=== PATIENT | male | born 1980 | race African-American/Black ===

== ENCOUNTER 2019-11-05 03:55 | Emergency (ER) | payer OTHER ==
[2019-11-05 04:06] VITALS: BP 128/87
[2019-11-05] MEDS ORDERED: ACETAMINOPHEN 325 MG TABLET PO ONE (04:08)
--- NOTE | 2019-11-05 06:20 | RADIOLOGY REPORT (SQ) ---
Right hand radiographs: 11/05/2019 5:19 AM SAFE EXPERT TECHNIQUE: AP, lateral, oblique images of the right hand were obtained. HISTORY: 39-year-old patient with history of right hand pain, trauma. COMPARISON: None available FINDINGS: The carpal arcs appear to be intact. The soft tissues are grossly unremarkable. There are no findings to suggest an acute fracture or subluxation within the right hand. No abnormal soft tissue calcifications, significant osteophyte formation, periarticular osteopenia, or bony erosions are seen. IMPRESSION: There are no findings to suggest an acute fracture or subluxation within the right hand.
[2019-11-05] MEDS ORDERED: DIPH/PERTUSS(ACELL)/TETANUS VAC/PF 0.5 ML SYR (>=10YO) IM ONE (08:01)
[2019-11-05] MEDS ORDERED: LIDOCAINE 1% INJ-PF (10 MG/ML) 30 ML SDV INJ ONE (08:33)
[2019-11-05] MEDS ORDERED: AMOXICILLIN TR/POT CLAVULANATE 500-125 MG TAB PO ONE (08:34)
--- NOTE | 2019-11-05 08:43 | ER Document Report ---
HPI - HPI Patient complains to provider of: finger laceration Time Seen by Provider: 11/05/19 07:55 Onset: Just prior to arrival Onset/Duration: Sudden Quality of pain: Throbbing Pain Level: 2 Context: 39-year-old male with history of high blood pressure presents to the emergency department with laceration to his right middle finger. 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 Is unsure of his last tetanus. Reports he is right-handed. Patient able to flex and extend finger without problems. No other complaints such as fever nausea vomiting diarrhea. Associated Symptoms: None Exacerbated by: Denies Relieved by: Denies Similar symptoms previously: No Recently seen / treated by doctor: No Past Medical History - General Information source: Patient - Social History Smoking Status: Never Smoker Frequency of alcohol use: None Drug Abuse: None Occupation: truck farmer Family History: Reviewed & Not Pertinent Patient has suicidal ideation: No Patient has homicidal ideation: No - Past Medical History Cardiac Medical History: Reports: Hx Hypertension Surgical Hx: Negative Vertical Provider Document - CONSTITUTIONAL Agree With Documented VS: Yes Exam Limitations: No Limitations General Appearance: WD/WN, No Apparent Distress - INFECTION CONTROL TRAVEL OUTSIDE OF THE [place] IN LAST 30 DAYS: No - HEENT HEENT: Atraumatic, Normocephalic - NECK Neck: Supple - RESPIRATORY Respiratory: No Respiratory Distress - CARDIOVASCULAR Cardiovascular: Regular Rate - MUSCULOSKELETAL/EXTREMETIES Musculoskeletal/Extremeties: MAEW, FROM, Tender - NEURO Level of Consciousness: Awake, Alert, Appropriate - DERM Integumentary: Warm, Dry, Laceration - 1.5 cm front to right middle finger wrapped around to the back of his finger down his nailbed, cap refill less than 3 seconds, no active bleeding Course - Re-evaluation Re-evalutation: 11/05/19 09:29 39-year-old male presents with open tuft fracture to his right middle finger. Dr. Dexter consulted. He advises placing patient on Augmentin follow-up in the office today. Finger cleaned really well. 3 sutures placed, splint placed for patient comfort. He was instructed on [place] Augmentin and the importance of follow-up with Dr. Dexter today. He was instructed on signs and symptoms of infection. He verbalized understanding to all instructions. 11/05/19 17:57 Patient contacted for follow-up. Reports he was unable to see Dr. Dexter today but he supposed to have an appointment with him by Monday. They are supposed to call him. Also reports his finger does not hurt that much reports feeling has returned to the finger. He was instructed to monitor the finger for any signs of infection take antibiotics as prescribed return for concerns. He verbalized understanding to all instructions. - Vital Signs Vital signs: Temp Pulse Resp BP Pulse Ox 97.7 F 80 18 128/87 H 97 11/05/19 04:05 11/05/19 04:05 11/05/19 04:05 11/05/19 04:05 11/05/19 04:05 - Diagnostic Test Radiology reviewed: Image reviewed, Reports reviewed - Consults Dr. Dexter Time consulted: 09:00 Reason for consultation: 11/05/19 09:29 Open tuft fracture Consulted provider: follow-up in office Procedures - Laceration/Wound Repair Right 3rd digit Wound length (cm): 1 Wound's Depth, Shape: Superficial Laceration pre-procedure: Shur-Clens applied Anesthetic type: 1% Lidocaine Volume Anesthetic (mLs): 3 Wound explored: Clean Wound Repaired With: Sutures Suture Size/Type: 4:0, Prolene Layer Closure?: No Post-procedure wound care: Splint applied Post-procedure NV exam normal: Yes Complications: No Notes: 11/05/19 09:18 Finger first soaked in normal saline and Shur-Clens. Finger cleaned well finger webspace digital block completed, 3 mils lidocaine injected, 3 sutures placed, patient tolerated procedure well, Hands front picture: 1 - laceration dorsal right middle finger that wraps around to the back of right middle finger down the nail. finger cleaned well, tuft fx noted, closed with 3 sutures, splint applied Discharge - Discharge Clinical Impression: Injury of right middle finger, open fracture right middle finger, tuft fracture Condition: Stable Disposition: HOME, SELF-CARE Instructions: Augmentin ([facility]), Laceration Care ([facility]), Open Finger Tuft Fracture ([facility]), Oral Narcotic Medication ([facility]), Prophylactic Antibiotic ([facility]), Temporary Splint ([facility]), Tetanus Immunization Given ([facility]) Additional Instructions: *You have been treated for a open tuft fracture to the right middle finger *Take medication as prescribed *Monitor the finger for signs of infection such as increased pain, warmth, redness, swelling, and discharge *Keep your finger clean. Wear splint to protect your finger *Follow up with Dr. Dexter today *Return to ED for any signs of infection, worsening condition, concerns Prescriptions: Amoxicillin/Potassium Clav [Augmentin 875-125 Tablet] 1 each PO BID #20 tablet Forms: Elevated Blood Pressure, Return to Work Referrals: LORNE DEXTER MD [ACTIVE STAFF] - 11/05/19 (Go to Dr Dexter's office after discharge from the ED today)
[2019-11-05] MEDS ORDERED: HYDROCODONE/ACETAMINOPHEN 5-325 MG (6 TAB/ER DISP) PO PRN (09:12)
== END 2019-11-05 09:40 | disposition home or self-care (01) ==
LOC: ER 03:55
DX: S62.632B Displaced fracture of distal phalanx of right middle finger, initial encounter for open fracture (principal); W23.1XXA Caught, crushed, jammed, or pinched between stationary objects, initial encounter; Y99.0 Civilian activity done for income or pay; I10 Essential (primary) hypertension; Z23 Encounter for immunization
CPT/HCPCS: 73130; 90715; 12001; J3490; 90471; 99283